=== PATIENT | male | born 1990 | race African-American/Black ===

== ENCOUNTER 2016-09-03 19:09 | Emergency (ER) | payer OTHER ==
[2016-09-03] MEDS ORDERED: AZITHROMYCIN 250 MG TAB As Ordered ONE (19:46)
[2016-09-03] MEDS ORDERED: cefTRIAXone SOD 250 MG VIAL (J0696) As Ordered ONE (19:46)
--- NOTE | 2016-09-03 20:35 | EDDOCDS ---
Nurse's Notes [facility] Name: Jake Gomez Age: 25 yrs Sex: Male : 1990 Arrival Date: 09/03/2016 Time: 19:09 Bed PR [facility] Encounter for screening for infections with a predominantly sexual mode of transmission Presentation: 09/03 19:24 Presenting complaint: Patient states: Feels he may have been exposed to an STD. Has not kmg1 felt well since having unprotected sex 1 week ago. Has some burning on urination and white, creamy discharge in the morning. Adult Sepsis Screening: The patient does not have new or worsening altered mentation. Patient's respiratory rate is less than 22. Systolic blood pressure is greater than 100. Patient has a qSOFA score of 0- Negative Sepsis Screen. Suicide/Homicide risk assessment- the patient denies having any suicidal and/or homicidal ideations and does not present with any other emotional, behavioral or mental health complaints. 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 Transition of care: patient was not received from another setting of care. 19:24 Acuity: MARY ELLEN Level 5 km 19:24 Method Of Arrival: Walkin/Carried/Asstd km Triage Assessment: 19:26 General: Appears in no apparent distress, comfortable, Behavior is appropriate for age, kmg1 cooperative, pleasant. Pain: Denies pain. Pt Declines HIV testing. : Reports burning with urination discharge white. Historical: - Allergies: No known drug Allergies; - Home Meds: 1. none - PMHx: none; - PSHx: none; - Social history: Smoking status: Patient states was never smoker of tobacco. No barriers to communication noted, The patient speaks fluent Bengali, Speaks appropriately for age. - Family history: Not pertinent. - : The pt / caregiver states he / she is not on anticoagulants. Home medication list is obtained from the patient. - Exposure Risk Screening:: None identified. Screenin:07 Screening information is obtained from the patient. Fall risk: No risks identified. ms18 Assistance ADL's: requires no assistance with activities of daily living. Abuse/DV Screen: The patient / caregiver reports he/she is: not in a situation that causes fear, pain or injury. Nutritional screening: No deficits noted. Advance Directives: There is no living will. home support is adequate. Assessment: 20:07 General: Appears in no apparent distress, comfortable, Behavior is appropriate for age, ms18 cooperative. Neurological: No deficits noted. Respiratory: No deficits noted. Derm: Skin is pink, warm & dry. normal. Vital Signs: 19:11 BP 146 / 87; Pulse 91; Resp 18; Temp 98.9; Pulse Ox 100% ; Weight 70.31 kg; Height 5 elp ft. 8 in. (172.72 cm); Pain 0/10; 20:30 BP 129 / 73 LA Sitting (auto/reg); Pulse 66 MON; Resp 18 S; Temp 98.9(TE); Pulse Ox cln 100% on R/A; Pain 0/10; 19:11 Body Mass Index 23.57 (70.31 kg, 172.72 cm) elp Vitals: 19:11 Log In Time: September 03, 2016 at 19:09. elp 20:06 HIV Screen Result: Negative. ms18 ED Course: 19:10 Patient visited by Kala Márquez PCA. elp 19:10 [facility] is Private Physician. elp 19:10 Patient moved to Waiting elp 19:11 Patient visited by Kala Márquez PCA. elp 19:11 Patient moved to Pre RCE elp 19:26 Triage Initiated kmg1 19:28 [facility] ck7 19:28 Micah Whaley DO is Attending Physician. ck7 19:28 Patient visited by Thomas May RPA-C. ck7 19:28 Patient moved to Triage 3 kmg1 19:47 GC & Chlamydia Amplification Sent. ms18 19:47 Urine Culture Sent. ms18 19:47 UA Sent. ms18 19:56 Patient moved to TR2 ms18 20:07 The patient / caregiver is instructed regarding the plan of care and ED course. Patient ms18 has correct armband on for positive identification. Property :Personal belongings accompany Pt. 20:07 No IV's were initiated during this patient's visit. No procedures done that require ms18 assistance. 20:16 Patient visited by Thomas May RPA-C. ck7 20:16 [facility] is Referral Physician. ck7 20:19 Patient moved to ms18 20:31 Patient visited by Chelita Melendez PCA. cln Administered Medications: 19:54 Drug: cefTRIAXone 250 mg [ceftriaxone 250 mg solution for injection (250 mg)] Route: kmg1 IM; Site: right gluteus; 19:54 Drug: azithromycin 1 grams [azithromycin 250 mg tablet (4 tabs)] Route: PO; kmg1 Order Results: Lab Order: UA; SPEC'M 09/03/16 19:31 Test: APPEARANCE, URINE; Value: CLEAR; Range: CLEAR; Status: F Test: COLOR, URINE; Value: YELLOW; Range: YELLOW; Status: F Test: PH,URINE; Value: 8.0; Range: 5.0-9.0; Units: UNITS; Status: F Test: SPECIFIC GRAVITY URINE AUTO; Value: 1.017; Range: 1.002-1.035; Status: F Test: PROTEIN, URINE AUTO; Value: NEGATIVE; Range: NEGATIVE; Units: mg/dL; Status: F Test: GLUCOSE, URINE (UA) AUTO; Value: NEGATIVE; Range: NEGATIVE; Units: mg/dL; Status: F Test: KETONE, URINE AUTO; Value: NEGATIVE; Range: NEGATIVE; Units: mg/dL; Status: F Test: UROBILINOGEN, URINE AUTO; Value: 0.2; Range: 0.0-2.0; Units: mg/dL; Status: F Test: BILIRUBIN, URINE AUTO; Value: NEGATIVE; Range: NEGATIVE; Status: F Test: NITRITE, URINE AUTO; Value: NEGATIVE; Range: NEGATIVE; Status: F Test: LEUKOCYTE ESTERASE, URINE AUTO; Value: NEGATIVE; Range: NEGATIVE; Status: F Test: BLOOD, URINE BLOOD; Value: NEGATIVE; Range: NEGATIVE; Status: F Test: WBC, URINE AUTO; Value: 1; Range: 0-3; Units: /HPF; Status: F Test: RBC, URINE AUTO; Value: 0; Range: 0-3; Units: /HPF; Status: F Test: BACTERIA, URINE AUTO; Value: NEGATIVE; Range: NEGATIVE; Status: F Test: SQUAMOUS EPITHELIAL CELL UR AU; Value: 0; Range: 0-6; Units: /HPF; Status: F Test: MUCUS, URINE; Value: SMALL; Range: NEGATIVE; Status: F Test: HYALINE CAST, URINE AUTO; Value: 0; Range: 0-1; Units: /LPF; Status: F Outcome: 20:17 Discharge ordered by Provider. ck7 20:33 The following High Risk Discharge criteria are identified: Discharged to home rs3 ambulatory. Condition: stable. Discharge instructions given to patient, Instructed on discharge instructions, follow up and referral plans. medication usage, Demonstrated understanding of instructions, medications, Pt was receptive of discharge instructions/ teaching. No special radiology studies were completed. 20:33 Discharge Assessment: patient administered narcotics - no. rs3 20:34 Patient left the ED. rs3 Signatures: Renae Soto, RN RN kmg1 Thania McarthurRN RN rs3 Thomas May, RPA-C RPA-Cck7 Kala Márquez, TRAUMA COORDINATOR TRAUMA COORDINATOR Nneka Byrd,RN RN ms18 Chelita Melendez, TRAUMA COORDINATOR TRAUMA COORDINATOR cln MTDD
--- NOTE | 2016-09-03 20:35 | EDDOCDS ---
Physician Documentation [facility] Name: Jake Gomez Age: 25 yrs Sex: Male : 1990 Arrival Date: 09/03/2016 Time: 19:09 Bed PR Private MD: [facility] [place] Disposition: 09/03/16 20:17 Discharged to Home/Self Care. Impression: Encounter for screening for infections with a predominantly sexual mode of transmission. - Condition is Stable. - Discharge Instructions: Sexually Transmitted Disease. - Medication Reconciliation, Local Pharmacy Hours form. - Follow up: [facility]; When: Tomorrow; Reason: Recheck today's complaints, Continuance of care. - Problem is new. - Symptoms have improved. - Notes: REFRAIN FROM SEXUAL INTERCOURSE UNTIL RESULTS ARE KNOWN, FOLLOW UP WITH YOUR DOCTOR TOMORROW, RETURN TO THE ER IF THE SYMPTOMS WORSEN OR BECOME CONCERNING Historical: - Allergies: No known drug Allergies; - Home Meds: 1. none - PMHx: none; - PSHx: none; - Social history: Smoking status: Patient states was never smoker of tobacco. No barriers to communication noted, The patient speaks fluent Occitan, Speaks appropriately for age. - Family history: Not pertinent. - : The pt / caregiver states he / she is not on anticoagulants. Home medication list is obtained from the patient. - Exposure Risk Screening:: None identified. Vital Signs: 09/03 19:11 BP 146 / 87; Pulse 91; Resp 18; Temp 98.9; Pulse Ox 100% ; Weight 70.31 kg / 155.01 elp lbs; Height 5 ft. 8 in. (172.72 cm); Pain 0/10; 20:30 BP 129 / 73 LA Sitting (auto/reg); Pulse 66 MON; Resp 18 S; Temp 98.9(TE); Pulse Ox cln 100% on R/A; Pain 0/10; 19:11 Body Mass Index 23.57 (70.31 kg, 172.72 cm) elp MDM: 19:36 HIV Screen, Nursing ordered. kmg1 19:43 cefTRIAXone 250 mg IM once ordered. ck7 19:43 azithromycin 1 grams PO once ordered. ck7 19:46 UA Ordered. EDMS 19:46 Urine Culture Ordered. EDMS 19:46 GC & Chlamydia Amplification Ordered. EDMS 20:16 UA Reviewed. ck7 20:30 Financial registration complete. ks16 Administered Medications: 19:54 Drug: cefTRIAXone 250 mg [ceftriaxone 250 mg solution for injection (250 mg)] Route: kmg1 IM; Site: right gluteus; 19:54 Drug: azithromycin 1 grams [azithromycin 250 mg tablet (4 tabs)] Route: PO; kmg1 Signatures: Dispatcher [employer] EDMS Renae Soto, RN RN kmg1 Thania Mcarthur RN RN rs3 Thomas May, RPA-C RPA-Cck7 Nneka Hinojosa RN RN ms18 Juliette Thompson, Reg Reg ks16 MTDD
--- NOTE | 2016-09-05 21:35 | EDDOCDS ---
Physician Documentation [facility] Name: Jake Gomez Age: 25 yrs Sex: Male : 1990 Arrival Date: 09/03/2016 Time: 19:09 Bed PR Private MD: [facility] [place] Disposition: 09/03/16 20:17 Discharged to Home/Self Care. Impression: Encounter for screening for infections with a predominantly sexual mode of transmission. - Condition is Stable. - Discharge Instructions: Sexually Transmitted Disease. - Medication Reconciliation, Local Pharmacy Hours form. - Follow up: [facility]; When: Tomorrow; Reason: Recheck today's complaints, Continuance of care. - Problem is new. - Symptoms have improved. - Notes: REFRAIN FROM SEXUAL INTERCOURSE UNTIL RESULTS ARE KNOWN, FOLLOW UP WITH YOUR DOCTOR TOMORROW, RETURN TO THE ER IF THE SYMPTOMS WORSEN OR BECOME CONCERNING Historical: - Allergies: No known drug Allergies; - Home Meds: 1. none - PMHx: none; - PSHx: none; - Social history: Smoking status: Patient states was never smoker of tobacco. No barriers to communication noted, The patient speaks fluent Italian, Speaks appropriately for age. - Family history: Not pertinent. - : The pt / caregiver states he / she is not on anticoagulants. Home medication list is obtained from the patient. - Exposure Risk Screening:: None identified. Vital Signs: 09/03 19:11 BP 146 / 87; Pulse 91; Resp 18; Temp 98.9; Pulse Ox 100% ; Weight 70.31 kg / 155.01 elp lbs; Height 5 ft. 8 in. (172.72 cm); Pain 0/10; 20:30 BP 129 / 73 LA Sitting (auto/reg); Pulse 66 MON; Resp 18 S; Temp 98.9(TE); Pulse Ox cln 100% on R/A; Pain 0/10; 19:11 Body Mass Index 23.57 (70.31 kg, 172.72 cm) elp MDM: 19:36 HIV Screen, Nursing ordered. kmg1 19:43 cefTRIAXone 250 mg IM once ordered. ck7 19:43 azithromycin 1 grams PO once ordered. ck7 19:46 UA Ordered. EDMS 19:46 Urine Culture Ordered. EDMS 19:46 GC & Chlamydia Amplification Ordered. EDMS 20:16 UA Reviewed. ck7 20:30 Financial registration complete. ks16 20:35 [facility] Payment Agreement was scanned into [employer] and attached to record. 09/04 11:21 T-Sheet-- Draft Copy was scanned into [employer] and attached to record. gb Administered Medications: 09/03 19:54 Drug: cefTRIAXone 250 mg [ceftriaxone 250 mg solution for injection (250 mg)] Route: kmg1 IM; Site: right gluteus; 19:54 Drug: azithromycin 1 grams [azithromycin 250 mg tablet (4 tabs)] Route: PO; kmg1 Signatures: Dispatcher [employer] EDMS Renae Soto, RN RN kmg1 Megan Chen, Reg Reg gb Thania McarthurRN RN rs3 Thomas May, RPA-C RPA-Cck7 Nneka Hinojosa RN RN ms18 Juliette Thompson, Reg Reg ks16 The chart was reviewed and I authenticate all verbal orders and agree with the evaluation and treatment provided.Attachments: 20:35 [facility] Payment Agreement 09/04 11:21 T-Sheet-- Draft Copy gb Chart Complete MTDD
--- NOTE | 2016-09-05 21:35 | EDDOCDS ---
Physician Documentation [facility] Name: Jake Gomez Age: 25 yrs Sex: Male : 1990 Arrival Date: 09/03/2016 Time: 19:09 Bed PR Private MD: [facility] [place] Disposition: 09/03/16 20:17 Discharged to Home/Self Care. Impression: Encounter for screening for infections with a predominantly sexual mode of transmission. - Condition is Stable. - Discharge Instructions: Sexually Transmitted Disease. - Medication Reconciliation, Local Pharmacy Hours form. - Follow up: [facility]; When: Tomorrow; Reason: Recheck today's complaints, Continuance of care. - Problem is new. - Symptoms have improved. - Notes: REFRAIN FROM SEXUAL INTERCOURSE UNTIL RESULTS ARE KNOWN, FOLLOW UP WITH YOUR DOCTOR TOMORROW, RETURN TO THE ER IF THE SYMPTOMS WORSEN OR BECOME CONCERNING Historical: - Allergies: No known drug Allergies; - Home Meds: 1. none - PMHx: none; - PSHx: none; - Social history: Smoking status: Patient states was never smoker of tobacco. No barriers to communication noted, The patient speaks fluent Romanian, Speaks appropriately for age. - Family history: Not pertinent. - : The pt / caregiver states he / she is not on anticoagulants. Home medication list is obtained from the patient. - Exposure Risk Screening:: None identified. Vital Signs: 09/03 19:11 BP 146 / 87; Pulse 91; Resp 18; Temp 98.9; Pulse Ox 100% ; Weight 70.31 kg / 155.01 elp lbs; Height 5 ft. 8 in. (172.72 cm); Pain 0/10; 20:30 BP 129 / 73 LA Sitting (auto/reg); Pulse 66 MON; Resp 18 S; Temp 98.9(TE); Pulse Ox cln 100% on R/A; Pain 0/10; 19:11 Body Mass Index 23.57 (70.31 kg, 172.72 cm) elp MDM: 19:36 HIV Screen, Nursing ordered. kmg1 19:43 cefTRIAXone 250 mg IM once ordered. ck7 19:43 azithromycin 1 grams PO once ordered. ck7 19:46 UA Ordered. EDMS 19:46 Urine Culture Ordered. EDMS 19:46 GC & Chlamydia Amplification Ordered. EDMS 20:16 UA Reviewed. ck7 20:30 Financial registration complete. ks16 20:35 [facility] Payment Agreement was scanned into [employer] and attached to record. 09/04 11:21 T-Sheet-- Draft Copy was scanned into [employer] and attached to record. gb Administered Medications: 09/03 19:54 Drug: cefTRIAXone 250 mg [ceftriaxone 250 mg solution for injection (250 mg)] Route: kmg1 IM; Site: right gluteus; 19:54 Drug: azithromycin 1 grams [azithromycin 250 mg tablet (4 tabs)] Route: PO; kmg1 Signatures: Dispatcher [employer] EDMS Renae Soto, RN RN kmg1 Megan Chen, Reg Reg gb Thania McarthurRN RN rs3 Thomas May, RPA-C RPA-Cck7 Nneka Hinojosa RN RN ms18 Juliette Thompson, Reg Reg ks16 The chart was reviewed and I authenticate all verbal orders and agree with the evaluation and treatment provided.Attachments: 20:35 [facility] Payment Agreement 09/04 11:21 T-Sheet-- Draft Copy gb Chart Complete MTDD
--- NOTE | 2016-09-05 21:35 | EDDOCDS ---
Nurse's Notes [facility] Name: Jake Gomez Age: 25 yrs Sex: Male : 1990 Arrival Date: 09/03/2016 Time: 19:09 Bed PR [facility] Encounter for screening for infections with a predominantly sexual mode of transmission Presentation: 09/03 19:24 Presenting complaint: Patient states: Feels he may have been exposed to an STD. Has not kmg1 felt well since having unprotected sex 1 week ago. Has some burning on urination and white, creamy discharge in the morning. Adult Sepsis Screening: The patient does not have new or worsening altered mentation. Patient's respiratory rate is less than 22. Systolic blood pressure is greater than 100. Patient has a qSOFA score of 0- Negative Sepsis Screen. Suicide/Homicide risk assessment- the patient denies having any suicidal and/or homicidal ideations and does not present with any other emotional, behavioral or mental health complaints. 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 Transition of care: patient was not received from another setting of care. 19:24 Acuity: MARY ELLEN Level 5 km 19:24 Method Of Arrival: Walkin/Carried/Asstd km Triage Assessment: 19:26 General: Appears in no apparent distress, comfortable, Behavior is appropriate for age, kmg1 cooperative, pleasant. Pain: Denies pain. Pt Declines HIV testing. : Reports burning with urination discharge white. Historical: - Allergies: No known drug Allergies; - Home Meds: 1. none - PMHx: none; - PSHx: none; - Social history: Smoking status: Patient states was never smoker of tobacco. No barriers to communication noted, The patient speaks fluent Maltese, Speaks appropriately for age. - Family history: Not pertinent. - : The pt / caregiver states he / she is not on anticoagulants. Home medication list is obtained from the patient. - Exposure Risk Screening:: None identified. Screenin:07 Screening information is obtained from the patient. Fall risk: No risks identified. ms18 Assistance ADL's: requires no assistance with activities of daily living. Abuse/DV Screen: The patient / caregiver reports he/she is: not in a situation that causes fear, pain or injury. Nutritional screening: No deficits noted. Advance Directives: There is no living will. home support is adequate. Assessment: 20:07 General: Appears in no apparent distress, comfortable, Behavior is appropriate for age, ms18 cooperative. Neurological: No deficits noted. Respiratory: No deficits noted. Derm: Skin is pink, warm & dry. normal. Vital Signs: 19:11 BP 146 / 87; Pulse 91; Resp 18; Temp 98.9; Pulse Ox 100% ; Weight 70.31 kg; Height 5 elp ft. 8 in. (172.72 cm); Pain 0/10; 20:30 BP 129 / 73 LA Sitting (auto/reg); Pulse 66 MON; Resp 18 S; Temp 98.9(TE); Pulse Ox cln 100% on R/A; Pain 0/10; 19:11 Body Mass Index 23.57 (70.31 kg, 172.72 cm) elp Vitals: 19:11 Log In Time: September 03, 2016 at 19:09. elp 20:06 HIV Screen Result: Negative. ms18 ED Course: 19:10 Patient visited by Kala Márquez PCA. elp 19:10 [facility] is Private Physician. elp 19:10 Patient moved to Waiting elp 19:11 Patient visited by Kala Márquez PCA. elp 19:11 Patient moved to Pre RCE elp 19:26 Triage Initiated kmg1 19:28 [facility] ck7 19:28 Micah Whaley DO is Attending Physician. ck7 19:28 Patient visited by Thomas May RPA-C. ck7 19:28 Patient moved to Triage 3 kmg1 19:47 GC & Chlamydia Amplification Sent. ms18 19:47 Urine Culture Sent. ms18 19:47 UA Sent. ms18 19:56 Patient moved to TR2 ms18 20:07 The patient / caregiver is instructed regarding the plan of care and ED course. Patient ms18 has correct armband on for positive identification. Property :Personal belongings accompany Pt. 20:07 No IV's were initiated during this patient's visit. No procedures done that require ms18 assistance. 20:16 Patient visited by Thomas May RPA-C. ck7 20:16 [facility] is Referral Physician. ck7 20:19 Patient moved to PR ms18 20:31 Patient visited by Chelita Melendez PCA. cln 20:35 [facility] Payment Agreement was scanned into [employer] and attached to record. ks16 09/04 11:21 T-Sheet-- Draft Copy was scanned into [employer] and attached to record. gb Administered Medications: 09/03 19:54 Drug: cefTRIAXone 250 mg [ceftriaxone 250 mg solution for injection (250 mg)] Route: kmg1 IM; Site: right gluteus; 19:54 Drug: azithromycin 1 grams [azithromycin 250 mg tablet (4 tabs)] Route: PO; kmg1 Order Results: Lab Order: UA; SPEC'M 09/03/16 19:31 Test: APPEARANCE, URINE; Value: CLEAR; Range: CLEAR; Status: F Test: COLOR, URINE; Value: YELLOW; Range: YELLOW; Status: F Test: PH,URINE; Value: 8.0; Range: 5.0-9.0; Units: UNITS; Status: F Test: SPECIFIC GRAVITY URINE AUTO; Value: 1.017; Range: 1.002-1.035; Status: F Test: PROTEIN, URINE AUTO; Value: NEGATIVE; Range: NEGATIVE; Units: mg/dL; Status: F Test: GLUCOSE, URINE (UA) AUTO; Value: NEGATIVE; Range: NEGATIVE; Units: mg/dL; Status: F Test: KETONE, URINE AUTO; Value: NEGATIVE; Range: NEGATIVE; Units: mg/dL; Status: F Test: UROBILINOGEN, URINE AUTO; Value: 0.2; Range: 0.0-2.0; Units: mg/dL; Status: F Test: BILIRUBIN, URINE AUTO; Value: NEGATIVE; Range: NEGATIVE; Status: F Test: NITRITE, URINE AUTO; Value: NEGATIVE; Range: NEGATIVE; Status: F Test: LEUKOCYTE ESTERASE, URINE AUTO; Value: NEGATIVE; Range: NEGATIVE; Status: F Test: BLOOD, URINE BLOOD; Value: NEGATIVE; Range: NEGATIVE; Status: F Test: WBC, URINE AUTO; Value: 1; Range: 0-3; Units: /HPF; Status: F Test: RBC, URINE AUTO; Value: 0; Range: 0-3; Units: /HPF; Status: F Test: BACTERIA, URINE AUTO; Value: NEGATIVE; Range: NEGATIVE; Status: F Test: SQUAMOUS EPITHELIAL CELL UR AU; Value: 0; Range: 0-6; Units: /HPF; Status: F Test: MUCUS, URINE; Value: SMALL; Range: NEGATIVE; Status: F Test: HYALINE CAST, URINE AUTO; Value: 0; Range: 0-1; Units: /LPF; Status: F Lab Order: Urine Culture; SPEC'M 09/03/16 19:31 Test: URINE CULTURE; Value: <EXTERNAL COMMENT eCWMed> FULL REPORT IN LAB NOTES (eCW and Medent).; Status: F Test: URINE CULTURE; Value: URINE CULTURE RESULT NO GROWTH; Status: F Lab Order: GC & Chlamydia Amplification; SPEC'M 09/03/16 19:31 Test: CHLAMYDIA DNA AMPLIFICATION; Value: NEGATIVE; Range: NEGATIVE; Status: F Test: GC DNA AMPLIFICATION; Value: NEGATIVE; Range: NEGATIVE; Status: F Outcome: 20:17 Discharge ordered by Provider. ck7 20:33 The following High Risk Discharge criteria are identified: Discharged to home rs3 ambulatory. Condition: stable. Discharge instructions given to patient, Instructed on discharge instructions, follow up and referral plans. medication usage, Demonstrated understanding of instructions, medications, Pt was receptive of discharge instructions/ teaching. No special radiology studies were completed. 20:33 Discharge Assessment: patient administered narcotics - no. rs3 20:34 Patient left the ED. rs3 Signatures: Renae Soto, RN RN kmg1 Megan Chen, Reg Reg gb Thania Mcarthur RN RN rs3 Thomas May, RPA-C RPA-Cck7 Kala Márquez, FLAVORING OIL FILTERER FLAVORING OIL FILTERER Nneka Byrd RN RN ms18 Juliette Thompson, Reg Reg ks16 Chelita Melendez, FLAVORING OIL FILTERER FLAVORING OIL FILTERER cln Chart Complete MTDD
== END 2016-09-03 20:34 | disposition home or self-care (01) ==
LOC: M ED 19:09
DX: Z11.3 Encounter for screening for infections with a predominantly sexual mode of transmission (principal)
CPT/HCPCS: 81001; 87086; 87491; 87591; 96372; 99283; J0696

== ENCOUNTER 2017-12-02 22:18 | Emergency (ER) | payer OTHER ==
[2017-12-02] MEDS ORDERED: LIDOCAINE 2% MDV 20 ML VIAL As Ordered (23:08)
[2017-12-02] MEDS: LIDOCAINE 2% MDV 20 ML VIAL SC (23:15)
== END 2017-12-02 23:41 | disposition home or self-care (01) ==
LOC: M ED 22:18
DX: S61.012A Laceration without foreign body of left thumb without damage to nail, initial encounter (principal); S61.411A Laceration without foreign body of right hand, initial encounter; S60.221A Contusion of right hand, initial encounter; S60.222A Contusion of left hand, initial encounter; S60.512A Abrasion of left hand, initial encounter; W22.09XA Striking against other stationary object, initial encounter; Y92.89 Other specified places as the place of occurrence of the external cause
CPT/HCPCS: 12002